=== PATIENT | female | born 1965 | race African-American/Black ===

== ENCOUNTER 2018-02-24 00:21 | Emergency (ER) | payer SELFPAY ==
[~2018-02-24] VITALS: Ht 170.2 cm; Wt 82.0 kg
[~2018-02-24 00:21] MED LIST: ALBU2SYR3 PO
[2018-02-24] MEDS ORDERED: ALBUTEROL (0.083%) 2.5MG/3ML NEB HHN STA (01:03)
[2018-02-24] MEDS ORDERED: IPRATROPIUM BROMIDE (0.02%) 0.5MG/2.5ML NEB HHN STA (01:03)
[2018-02-24] MEDS ORDERED: METHYLPREDNISOLONE SOD SUCC 125 MG/2 ML VIAL IM STA (01:03)
[2018-02-24] MEDS ORDERED: ASPIRIN 81MG TABLET PO ONE (01:15)
[2018-02-24] MEDS: NITROGLYCERIN 0.4MG TABLET SL SL PRN ×2 (01:20→02:07)
[2018-02-24] MEDS ORDERED: PREDNISONE 20MG TABLET PO ONE (01:30)
[2018-02-24] MEDS ORDERED: LEVOFLOXACIN 250MG TABLET PO ONE (01:45)
[2018-02-24 03:27] VITALS: BP 152/82
== END 2018-02-24 03:57 | disposition left against medical advice (07) ==
LOC: ER 00:21
DX: J45.901 Unspecified asthma with (acute) exacerbation (principal); J18.9 Pneumonia, unspecified organism; R94.31 Abnormal electrocardiogram [ECG] [EKG]
CPT/HCPCS: 71045; 93005; 94640; 99285; J2930; J7512; J7611